=== PATIENT | male | born 1950 | race Caucasian/White ===

== ENCOUNTER 2017-05-12 16:21 | Inpatient (IN) | payer OTHER ==
[~2017-05-12] VITALS: Ht 180.3 cm; Wt 86.2 kg
[2017-05-12 17:07] LABS: BASOPHIL (%) 0.4 % (0-1); EOSINOPHIL (%) 2.9 % (0-5); EOSINOPHIL COUNT 0.3 K/uL (0-0.3); HEMATOCRIT 40.6 % (38.0-50.0); HEMOGLOBIN 14.1 G/DL (12.5-16.6); IMMATURE GRANULOCYTE (%) 0.4 % (0.0-0.7); LYMPHOCYTE (%) 23.7 % (15-42); MCHC 34.7 G/DL (30.0-36.0); MCV 92.1 FL (86-99); MONOCYTE (%) 10.4 % (3-12); MONOCYTE COUNT 0.9 K/uL (0-0.8); NEUTROPHIL (%) 62.2 % (45-76); NEUTROPHIL COUNT 5.3 K/uL (1.8-6.4); PLATELET COUNT 282 K/uL (156-360); RBC DIS.WIDTH-CV 12.4 % (11.8-14.6); RBC DIS.WIDTH-SD 42.4 % (39-53); RED BLOOD COUNT 4.41 M/uL (4.00-5.50); WHITE BLOOD COUNT 8.6 K/uL (4.1-10.2)
[2017-05-12 17:14] LABS: INTER. NORMALIZED RATIO 0.9
[2017-05-12 17:16] LABS: AMYLASE 49 IU/L (1-118); CHLORIDE 103 mEq/L (99-109); POTASSIUM 3.9 mEq/L (3.7-5.4); PTT 33.7 SEC (25-37); SODIUM 137 mEq/L (136-147)
[2017-05-12 17:18] LABS: GLUCOSE 112 mg/dL (70-99)
[2017-05-12 17:21] LABS: SERUM ETHYL ALCOHOL < 10 mg/dL
[2017-05-12 17:22] LABS: CREATININE 0.8 mg/dL (0.6-1.3); GFR ESTIMATE (CALCULATED) > 59 mL/min/ (58.99-99999)
[2017-05-12 17:23] LABS: UREA NITROGEN (BUN) 16 mg/dL (9-23)
[2017-05-12 17:25] LABS: LIPASE 34 U/L (1.0-51.0)
[2017-05-12 17:30] LABS: TROP-I INTERPRETATION NEGATIVE; TROPONIN-I < 0.01 ng/mL (0.0-0.30)
[2017-05-12 19:46] LABS: APPEARANCE CLEAR ((CLEAR)); BILIRUBIN NEGATIVE; BLOOD NEGATIVE; COLOR YELLOW ((YELLOW)); GLUCOSE (STRIP) NEGATIVE; KETONES 5; LEUKOCYTES NEGATIVE; NITRITE NEGATIVE; PROTEIN (STRIP) NEGATIVE; SPECIFIC GRAVITY 1.032 (1.000-1.030); UCUL ADDED? NO; UROBILINOGEN 0.2 MG/DL (0.2-1.0)
[2017-05-12 19:54] LABS: AMPHETAMINE NEGATIVE (500 ng/mL); BARBITURATES NEGATIVE (200 ng/mL); BENZODIAZEPINES NEGATIVE (150 ng/mL); BUPRENORPHINE NEGATIVE (10 ng/mL); COCAINE NEGATIVE (150 ng/mL); METHADONE NEGATIVE (200 ng/mL); METHAMPHETAMINE NEGATIVE (500 ng/mL); OPIATES (MORPHINE) NEGATIVE (100 ng/mL); OXYCODONE NEGATIVE (100 ng/mL); PHENCYCLIDINE NEGATIVE (25 ng/mL); PROPOXYPHENE NEGATIVE (300 ng/mL); THC CANNABINOIDS PRESUMPTIVE POSITIVE (50 ng/mL); TRICYCLIC ANTIDEPRESSANTS NEGATIVE (300 ng/mL)
[2017-05-13] VITALS: BP 153/73
[2017-05-13 00:30] LABS: HDL CHOLESTEROL 64 MG/DL (Desirable>=40); LDL CHOLESTEROL 126 mg/dL (Desirable<100); NON-HDL CHOLESTEROL 144 mg/dL (Desirable<160); TOTAL CHOLESTEROL 208 mg/dL (Desirable<200); TRIGLYCERIDES 88 MG/DL (Normal: <150)
[2017-05-13 04:00] VITALS: BP 115/62
[2017-05-13 07:49] VITALS: BP 149/89
[2017-05-13 09:57] LABS: HEMOGLOBIN A1c (GLYCOHEMOGLOB) 5.3 % (Below 5.7)
[2017-05-13 10:02] LABS: HEMOGLOBIN 13.2 G/DL (12.5-16.6); MCH 31.6 PG (29.0-34.0); MCHC 33.8 G/DL (30.0-36.0); MCV 93.3 FL (86-99); PLATELET COUNT 246 K/uL (156-360); RBC DIS.WIDTH-CV 12.8 % (11.8-14.6); RBC DIS.WIDTH-SD 43.8 % (39-53); RED BLOOD COUNT 4.18 M/uL (4.00-5.50); WHITE BLOOD COUNT 6.4 K/uL (4.1-10.2)
[2017-05-13 10:32] LABS: CHLORIDE 106 MEQ/L (99-109); CREATININE 0.7 MG/DL (0.6-1.3); GFR ESTIMATE (CALCULATED) > 59 mL/min/ (58.99-99999); POTASSIUM 4.1 MEQ/L (3.7-5.4); SODIUM 137 MEQ/L (136-147); UREA NITROGEN (BUN) 12 mg/dL (9-23)
[2017-05-13 10:34] LABS: GLUCOSE 169 mg/dL (70-99)
[2017-05-13 11:48] VITALS: BP 171/96
[2017-05-13 16:05] VITALS: BP 168/85
[2017-05-13 19:38] VITALS: BP 152/80
[2017-05-14 00:23] VITALS: BP 166/81
[2017-05-14 03:50] VITALS: BP 154/80
[2017-05-14 07:59] VITALS: BP 158/78
[2017-05-14 12:11] VITALS: BP 141/89
[2017-05-14 16:24] VITALS: BP 143/73
[2017-05-14 19:11] VITALS: BP 136/67
[2017-05-15 00:01] VITALS: BP 127/61
[2017-05-15 03:35] VITALS: BP 121/69
[2017-05-15 07:54] VITALS: BP 159/93
[2017-05-15 11:43] VITALS: BP 143/77
[2017-05-15] MEDS ORDERED: ASPIR-LOW81 MG PO (12:44)
[2017-05-15] MEDS ORDERED: Thiamine,Vitamin B1 PO (12:44)
[2017-05-15] MEDS ORDERED: PREDNISONE20 MG PO (12:44)
[2017-05-15] MEDS ORDERED: CLOPIDOGREL75 MG PO (12:44)
[2017-05-15] MEDS ORDERED: FOLIC ACID1 MG PO (12:44)
[2017-05-15] MEDS ORDERED: ATORVASTATIN CA40 MG PO (12:44)
[2017-05-15 20:34] VITALS: BP 139/75
[2017-05-16 00:05] VITALS: BP 125/72
[2017-05-16 03:51] VITALS: BP 119/74
[2017-05-16 07:57] VITALS: BP 150/92
[2017-05-16 12:13] VITALS: BP 145/85
== END 2017-05-16 13:40 | disposition home health service (06) | DRG 64 ==
LOC: EME 16:21 → EDOF 22:09 → 5SOUTH 22:09 → ENRESERV 22:12 → 5SOUTH 23:38
PROVIDERS: Emergency Medicine; Hospitalist
DX: I63.512 Cerebral infarction due to unspecified occlusion or stenosis of left middle cerebral artery (principal); G93.6 Cerebral edema; I75.89 Atheroembolism of other site; I65.22 Occlusion and stenosis of left carotid artery; F17.210 Nicotine dependence, cigarettes, uncomplicated; F10.10 Alcohol abuse, uncomplicated; R29.701 NIHSS score 1; R47.01 Aphasia; R47.02 Dysphasia; R47.81 Slurred speech; R06.03 Acute respiratory distress; I63.312 Cerebral infarction due to thrombosis of left middle cerebral artery; Y90.0 Blood alcohol level of less than 20 mg/100 ml; Z79.02 Long term (current) use of antithrombotics/antiplatelets; Z79.82 Long term (current) use of aspirin; Z73.6 Limitation of activities due to disability
CPT/HCPCS: 70450; 70496; 70498; 70551; 80048; 80061; 81003; 82150; 83036; 83690; 84484; 84999; 85025; 85027; 85610; 85730; 86850; 86900; 86901; 93005; 93306; 93880; 99202; 99281; 99285; G0480; J1644; J2920; J3411; J3475; J7030; J7040; J7512